=== PATIENT | male | born 1940 | race Asian ===

== ENCOUNTER 2017-08-02 10:56 | Day surgery (SDC) | payer MEDICARE, OTHER ==
[~2017-08-02 10:56] MED LIST: ATROPINE 1 MG/10 ML SYRINGE IV; CEFAZOLIN 1 GM INJ; DIPHENHYDRAMINE 50 MG INJ IV; EPHEDrine SULFATE 50 MG/5 ML SYG IV; FENTAnyl 50 MCG/ML VIAL IV; HYDROmorphONE (0.2 MG/ML) 10ML SYG IV; LABETALOL HCL 20MG INJ IV; MEPERIDINE 25 MG INJ IV; MIDAZOLAM 1 MG/ML 2 ML INJ IV; ONDANSETRON 4 MG INJ IV; OXYCODONE/ACETAMINOPHEN (5/325) TAB PO; morphine (1 MG/ML) 10ML SYRINGE IV
[2017-08-02] MEDS ORDERED: CEFAZOLIN 2 GM/50 ML (PMX) 50 ML IVPB (12:00)
[2017-08-02] MEDS ORDERED: MIDAZOLAM 1 MG/ML 2 ML INJ (12:28)
[2017-08-02] MEDS ORDERED: FENTAnyl 50 MCG/ML VIAL (12:28)
[2017-08-02] MEDS ORDERED: ROCURONIUM 50 MG INJ (12:28)
[2017-08-02] MEDS ORDERED: LIDOCAINE 2% (SDV) 5 ML INJ (12:28)
[2017-08-02] MEDS ORDERED: PROPOFOL 20 ML (12:28)
[2017-08-02] MEDS ORDERED: GLYCOPYRROLATE 0.4 MG INJ (12:28)
[2017-08-02] MEDS ORDERED: NEOSTIGMINE 3 MG/3 ML SYRINGE (12:28)
[2017-08-02] MEDS ORDERED: SUCCINYLCHOLINE CHLORIDE 100 MG/5 ML SYG IV (12:30)
[2017-08-02] MEDS ORDERED: ONDANSETRON 4 MG INJ (12:30)
[2017-08-02] MEDS ORDERED: DEXAMETHASONE 4 MG/ML 1 ML INJ (12:30)
[2017-08-02] MEDS ORDERED: DEXTROSE 5%-0.45% NACL 1,000 ML IV (14:37)
[2017-08-02] MEDS: hydrALAzine 20 MG INJ IV (15:00)
[2017-08-02] MEDS: FENTAnyl 50 MCG/ML VIAL IV (15:47)
== END 2017-08-02 17:23 | disposition home or self-care (01) ==
LOC: SDS 10:56
DX: N21.0 Calculus in bladder (principal); I10 Essential (primary) hypertension; E78.5 Hyperlipidemia, unspecified
CPT/HCPCS: 52318; 88300